=== PATIENT | female | born 1965 | race Caucasian/White ===

== ENCOUNTER 2020-09-29 01:19 | Emergency (ER) | payer OTHER ==
[~2020-09-29] VITALS: Ht 170.2 cm; Wt 60.0 kg
[2020-09-29 01:55] LABS: BASO % 1 % (0-3); EOS # 0.5 x10^3/uL (0.0-0.7); EOS % 6 % (0-3); HEMATOCRIT 39.7 % (36.0-47.0); HEMOGLOBIN 13.9 g/dL (12.0-15.5); LYMPH # 2.2 x10^3/uL (1.0-4.8); LYMPH % 28 % (24-48); MEAN CORPUSCULAR HEMOGLOBIN 32 pg (25-35); MEAN CORPUSCULAR HGB CONC 35 g/dL (31-37); MEAN CORPUSCULAR VOLUME 92 fL (79-100); MONO # 0.7 x10^3/uL (0.0-1.1); MONO % 10 % (0-9); NEUT # 4.3 x10^3/uL (1.8-7.7); NEUT % 55 % (31-73); PLATELET COUNT 188 x10^3/uL (140-400); RED BLOOD COUNT 4.32 x10^6/uL (3.50-5.40); RED CELL DISTRIBUTION WIDTH 12.9 % (11.5-14.5); WHITE BLOOD COUNT 7.7 x10^3/uL (4.0-11.0)
--- NOTE | 2020-09-29 02:01 | PHYS DOC ---
Past Medical History Past Medical History: Anxiety, COPD, Hypertension, Migraines Additional Past Medical Histor: chronic back pain Past Surgical History: Other Additional Past Surgical Histo: pt denies. Smoking Status: Current Every Day Smoker Alcohol Use: None General Adult EDM: Chief Complaint: SHORTNESS OF BREATH HPI: HPI: Patient is a 55 year old male who presented to ER for evaluation of trouble breathing for a few days, nonproductive cough. Patient is a smoker, she smoked a pack a day, patient has COPD, she is not on any oxygen at home. Patient denies any fever. Patient has history hypertension, she is on medication for. Patient also complained of headache she said is her migraine headache. She feels dizzy with a headache. Patient denies any chest pain. Patient denies being exposed to anybody who tested positive for COVID-19 Review of Systems: Review of Systems: Constitutional: Denies fever or chills. [] Eyes: Denies change in visual acuity. [] HENT: Denies nasal congestion or sore throat. [] Respiratory: Positive for cough and trouble breathing. Cardiovascular: Denies chest pain or edema. [] GI: Denies abdominal pain, nausea, vomiting, bloody stools or diarrhea. [] : Denies dysuria. [] Musculoskeletal: Denies back pain or joint pain. [] Integument: Denies rash. [] Neurologic: Positive for headache, positive for dizziness ,no focal weakness or numbness. Endocrine: Denies polyuria or polydipsia. [] Lymphatic: Denies swollen glands. [] Psychiatric: Denies depression or anxiety. [] Heart Score: Risk Factors: Risk Factors: DM, Current or recent (<one month) smoker, HTN, HLP, family history of CAD, obesity. Risk Scores: Score 0 - 3: 2.5% MACE over next 6 weeks - Discharge Home Score 4 - 6: 20.3% MACE over next 6 weeks - Admit for Clinical Observation Score 7 - 10: 72.7% MACE over next 6 weeks - Early Invasive Strategies Current Medications: Current Medications Medications (Trade) Dose Ordered Sig/Fay Start Time Stop Time Status Last Admin Dose Admin Albuterol/ Ipratropium (Duoneb) 3 ml 1X ONCE 09/29/20 02:00 09/29/20 02:01 UNV Methylprednisolone Sodium Succinate (SOLU-Medrol 125MG VIAL) 125 mg 1X ONCE 09/29/20 02:00 09/29/20 02:01 UNV Allergies: Allergies: Allergies Coded Allergies Type Severity Reaction Last Updated Verified No Known Drug Allergies 09/29/20 No Physical Exam: PE: Constitutional: Well developed, well nourished, no acute distress, non-toxic appearance. [] HENT: Normocephalic, atraumatic, bilateral external ears normal, oropharynx moist, no oral exudates, nose normal. [] Eyes: PERRLA, EOMI, conjunctiva normal, no discharge. [] Neck: Normal range of motion, no tenderness, supple, no stridor. [] Cardiovascular:Heart rate regular rhythm, no murmur [] Lungs & Thorax: Bilateral breath sounds wheezing to auscultation, no respiratory distress Abdomen: Bowel sounds normal, soft, no tenderness, no masses, no pulsatile masses. [] Skin: Warm, dry, no erythema, no rash. [] Back: No tenderness, no CVA tenderness. [] Extremities: No tenderness, no cyanosis, no clubbing, ROM intact, no edema. [] Neurologic: Alert and oriented X 3, normal motor function, normal sensory function, no focal deficits noted. [] Psychologic: Affect normal, judgement normal, mood normal. [] Current Patient Data: Labs: Laboratory Tests Test 09/29/20 01:42 White Blood Count 7.7 x10^3/uL (4.0-11.0) Red Blood Count 4.32 x10^6/uL (3.50-5.40) Hemoglobin 13.9 g/dL (12.0-15.5) Hematocrit 39.7 % (36.0-47.0) Mean Corpuscular Volume 92 fL (79-100) Mean Corpuscular Hemoglobin 32 pg (25-35) Mean Corpuscular Hemoglobin Concent 35 g/dL (31-37) Red Cell Distribution Width 12.9 % (11.5-14.5) Platelet Count 188 x10^3/uL (140-400) Neutrophils (%) (Auto) 55 % (31-73) Lymphocytes (%) (Auto) 28 % (24-48) Monocytes (%) (Auto) 10 % (0-9) H Eosinophils (%) (Auto) 6 % (0-3) H Basophils (%) (Auto) 1 % (0-3) Neutrophils # (Auto) 4.3 x10^3/uL (1.8-7.7) Lymphocytes # (Auto) 2.2 x10^3/uL (1.0-4.8) Monocytes # (Auto) 0.7 x10^3/uL (0.0-1.1) Eosinophils # (Auto) 0.5 x10^3/uL (0.0-0.7) Basophils # (Auto) 0.0 x10^3/uL (0.0-0.2) Laboratory Tests 09/29/20 01:42 Vital Signs: Vital Signs Date Time Temp Pulse Resp B/P (MAP) Pulse Ox O2 Delivery O2 Flow Rate FiO2 09/29/20 01:25 97.8 61 18 178/89 (118) 94 Room Air 97.8 EKG: EKG: EKG was done at 134, heart rate of 57 bpm, sinus rhythm, no ST segment ovation. Radiology/Procedures: Radiology/Procedures: [][facility] [address] [place] [address] IMAGING REPORT Signed PATIENT: ANGELLA JACOBS ACCOUNT: [id number] : 1965 LOCATION: ER AGE: 55 SEX: F EXAM STATUS: REG ER ORD. PHYSICIAN: SRINIVAS WILSON DO REASON: headache, dizziness, hypertensive PROCEDURE: CT HEAD WO CONTRAST CT head without contrast dated 09/29/2020. No comparison available. CLINICAL INDICATION: Headache and dizziness. Hypertension. TECHNIQUE: Contiguous axial imaging the head was performed from skull base to vertex. No contrast administered. One or more of the following individualized dose reduction techniques were utilized for this examination: 1. Automated exposure control 2. Adjustment of the mA and/or kV according to patient size 3. Use of iterative reconstruction technique FINDINGS: Ventricles and sulci are within normal limits for age. No midline shift or mass effect. Brain parenchyma is of normal attenuation. No hemorrhage or extra-axial collection. Posterior fossa and brainstem unremarkable. Visualized paranasal sinuses and mastoid air cells are clear. No apparent calvarial abnormality. IMPRESSION: No evidence of acute intracranial abnormality. Electronically signed by: Tacos Mattson MD (09/29/2020 2:19 AM) [facility] DICTATED and SIGNED BY: TACOS MATTSON MD DATE: 09/29/[id number] 0 [facility] [address] [place] [address] IMAGING REPORT Signed PATIENT: ANGELLA JACOBS ACCOUNT: [id number] : 1965 LOCATION: ER AGE: 55 SEX: F EXAM STATUS: REG ER ORD. PHYSICIAN: SRINIVAS WILSON DO REASON: soa PROCEDURE: PORTABLE CHEST 1V Single view chest dated 09/29/2020: Comparison made to 06/14/2008 Clinical Indication: Shortness of breath. Findings: Single upright portable exam of the chest was performed. Heart size and mediastinal contours are within normal limits given technique. The lungs are clear without evidence of focal consolidation. No pleural effusion or pneumothorax. Impression:: Negative portable chest. Electronically signed by: Tacos Mattson MD (09/29/2020 2:18 AM) [facility] DICTATED and SIGNED BY: TACOS MATTSON MD DATE: 09/29/[id number] 0 Course & Med Decision Making: Course & Med Decision Making Pertinent Labs and Imaging studies reviewed. (See chart for details) Patient is a 55-year-old female who presented to ER for evaluation of dizziness, headache, trouble breathing. Patient has COPD exacerbation, she is a smoker. Patient was given medication in ER, she feel much better. Patient will be discharged home Dragon Disclaimer: Al Disclaimer: This electronic medical record was generated, in whole or in part, using a voice recognition dictation system. Departure Departure Impression: Primary Impression: COPD with acute exacerbation Additional Impressions: Headache Hypomagnesemia Disposition: 01 DC HOME SELF CARE/HOMELESS Condition: IMPROVED Referrals: APRIL JAMA MD (PCP) follow up with your doctor this week. Patient Instructions: Chronic Obstructive Pulmonary Disease Exacerbation Additional Instructions: Thank you for visiting our Emergency Department. We appreciate you trusting us with your care. If any additional problems come up don't hesitate to return to visit us. Please follow up with your primary care provider so they can plan additional care if needed and know about the problem that you had. If symptoms worsen come back to the Emergency Department. Any concerning symptoms that start such as chest pain, shortness of air, weakness or numbness on one side of the body, running high fevers or any other concerning symptoms return to the ER. Scripts Albuterol Sulfate (PROAIR HFA INHALER) 8.5 Gm Hfa.aer.ad 2 PUFF IH PRN Q4-6HRS PRN for wheezing for 21 Days, #1 INHALER 0 Refills Prov: SRINIVAS WILSON DO 09/29/20 Prednisone (PREDNISONE) 20 Mg Tablet 1 TAB PO DAILY for 7 Days, #7 TAB Prov: SRINIVAS WILSON DO 09/29/20 SRINIVAS WILSON DO Sep 29, 2020 02:01
[2020-09-29] MEDS: methylPREDNISolone SOD SUCC PF 125 MG/2 ML VIAL. IV ONE (02:03)
[2020-09-29 02:04] LABS: CALCIUM 9.5 mg/dL (8.5-10.1); CREATININE 0.9 mg/dL (0.6-1.0); GFR 64.8; POTASSIUM 3.6 mmol/L (3.5-5.1)
[2020-09-29 02:10] LABS: ALBUMIN 3.6 g/dL (3.4-5.0); ALBUMIN/GLOBULIN RATIO 1.2 (1.0-1.7); MAGNESIUM 1.5 mg/dL (1.8-2.4); TOTAL BILIRUBIN 0.6 mg/dL (0.2-1.0); TOTAL PROTEIN 6.7 g/dL (6.4-8.2)
[2020-09-29] MEDS: IPRATRPIUM/ALBUTEROL 0.5/2.5MG 3 ML NEBU. NEB ONE (02:15)
--- NOTE | 2020-09-29 02:21 | RAD ---
Single view chest dated 09/29/2020: Comparison made to 06/14/2008 Clinical Indication: Shortness of breath. Findings: Single upright portable exam of the chest was performed. Heart size and mediastinal contours are with in normal limits given technique. The lungs are clear without evidence of focal consolidation. No ple ural effusion or pneumothorax. Impression:: Negative portable chest. Electronically signed by: Tacos Mattson MD (09/29/2020 2:18 AM) TIGRE
--- NOTE | 2020-09-29 02:22 | RAD ---
CT head without contrast dated 09/29/2020. No comparison available. CLINICAL INDICATION: Headache and dizziness. Hypertension. TECHNIQUE: Contiguous axial imaging the head was performed from skull base to vertex. No contrast administered. One or more of the following individualized dose reduction techniques were utilized for this examinat ion: 1. Automated exposure control 2. Adjustment of the mA and/or kV according to patient size 3. Use of iterative reconstruction technique FINDINGS: Ventricles and sulci are within normal limits for age. No midline shift or mass effect. Brain parench yma is of normal attenuation. No hemorrhage or extra-axial collection. Posterior fossa and brainstem unremarkable. Visualized paranasal sinuses and mastoid air cells are clear. No apparent calvarial abnormality. IMPRESSION: No evidence of acute intracranial abnormality. Electronically signed by: Tacos Mattson MD (09/29/2020 2:19 AM) TIGRE
[2020-09-29] MEDS: MAGNESIUM SULFATE 2GM 50 ML IV ONE (03:17)
[2020-09-29] MEDS ORDERED: ALBU2.5V8 IH (03:49)
[2020-09-29] MEDS ORDERED: PRED20TA PO (03:49)
[2020-09-29 04:27] VITALS: BP 197/96
--- NOTE | 2020-09-29 07:46 | EKG ---
[facility] [address] [place] [address] Test Date: 2020-09-29 Test Time: 01:34:30 Pat Name: ANGELLA JACOBS Department: Room: Gender: F [employer]st: : 1965 Requested By: SRINIVAS WILSON Order Number: [id number] Reading MD: Measurements Intervals [place] Rate: 57 P: 70 [place]: 160 QRS: 51 QRSD: 90 T: -34 QT: 428 QTc: 420 Interpretive Statements SINUS RHYTHM LEFT ATRIAL ABNORMALITY T ABNORMALITY IN ANTEROLATERAL LEADS ABNORMAL ECG RI6.02 No previous ECG available for comparison
== END 2020-09-29 04:47 | disposition home or self-care (01) ==
LOC: ER 01:19
DX: J44.1 Chronic obstructive pulmonary disease with (acute) exacerbation (principal); Z20.828 Contact with and (suspected) exposure to other viral communicable diseases; G43.909 Migraine, unspecified, not intractable, without status migrainosus; E83.42 Hypomagnesemia; R05 Cough; R42 Dizziness and giddiness; F41.9 Anxiety disorder, unspecified; I10 Essential (primary) hypertension; G89.29 Other chronic pain; F17.200 Nicotine dependence, unspecified, uncomplicated; Z98.890 Other specified postprocedural states
CPT/HCPCS: 36415; 70450; 71045; 80053; 83735; 83880; 84484; 85025; 93005; 94640; 96365; 96375; 99285; C9803; J2930; J3475; U0003

== ENCOUNTER 2021-04-20 07:04 | Observation (INO) | payer OTHER ==
[~2021-04-20] VITALS: Ht 167.6 cm; Wt 68.1 kg
[~2021-04-20 07:04] MED LIST: ALBU2.5V8 IH; PRED20TA PO
[2021-04-20] MEDS ORDERED: ACETAMINOPHEN 500 MG TABLET PO ONE (07:45)
[2021-04-20] MEDS ORDERED: IV NORMAL SALINE 1000ML BAG 1,000 ML IV ONE (07:45)
[2021-04-20] MEDS ORDERED: methylPREDNISolone SOD SUCC PF 125 MG/2 ML VIAL. IV ONE (07:45)
[2021-04-20 07:51] LABS: BILIRUBIN,URINE NEGATIVE (NEG); CLARITY,URINE CLEAR; COLOR,URINE YELLOW; NITRITE,URINE NEGATIVE (NEG); PH,URINE 5.5 (<5.0-8.0); PROTEIN,URINE NEGATIVE (NEG-TRACE)
[2021-04-20 07:58] LABS: BARBITURATES NEG (NEG); BENZODIAZEPINES NEG (NEG); CANNABINOIDS POS (NEG); COCAINE NEG (NEG); METHADONE NEG (NEG); OPIATES NEG (NEG); PHENCYCLIDINE NEG (NEG)
[2021-04-20 08:01] LABS: AMPHETAMINE/METHAMPHETAMINE NEG (NEG)
--- NOTE | 2021-04-20 08:06 | RAD ---
EXAM: Chest, single view. HISTORY: Fever. Shortness of air. COMPARISON: 09/29/2020 FINDINGS: A frontal view of the chest is obtained. There is no infiltrate, pleural effusion or pneumo thorax. The heart is normal in size. IMPRESSION: No acute pulmonary finding. Electronically signed by: Va Proctor MD (04/20/2021 8:04 AM) [id number]
[2021-04-20 08:17] LABS: BACTERIA,URINE 0 /HPF (0-FEW); RBC,URINE 0 /HPF (0-2); WBC,URINE OCC /HPF (0-4)
[2021-04-20 08:23] LABS: BASO # 0.1 x10^3/uL (0.0-0.2); BASO % 1 % (0-3); EOS # 0.4 x10^3/uL (0.0-0.7); EOS % 5 % (0-3); HEMATOCRIT 34.5 % (36.0-47.0); HEMOGLOBIN 12.1 g/dL (12.0-15.5); LYMPH # 1.8 x10^3/uL (1.0-4.8); LYMPH % 20 % (24-48); MEAN CORPUSCULAR HEMOGLOBIN 33 pg (25-35); MEAN CORPUSCULAR HGB CONC 35 g/dL (31-37); MEAN CORPUSCULAR VOLUME 93 fL (79-100); MONO # 0.9 x10^3/uL (0.0-1.1); MONO % 10 % (0-9); NEUT # 5.7 x10^3/uL (1.8-7.7); NEUT % 64 % (31-73); PLATELET COUNT 231 x10^3/uL (140-400); RED BLOOD COUNT 3.71 x10^6/uL (3.50-5.40); RED CELL DISTRIBUTION WIDTH 12.5 % (11.5-14.5)
[2021-04-20 08:25] LABS: CALCIUM 8.9 mg/dL (8.5-10.1); CREATININE 0.8 mg/dL (0.6-1.0); GFR 73.9; POTASSIUM 3.9 mmol/L (3.5-5.1)
[2021-04-20 08:31] LABS: ALBUMIN 3.5 g/dL (3.4-5.0); ALBUMIN/GLOBULIN RATIO 1.2 (1.0-1.7); TOTAL BILIRUBIN 0.6 mg/dL (0.2-1.0); TOTAL PROTEIN 6.4 g/dL (6.4-8.2)
--- NOTE | 2021-04-20 08:39 | PHYS DOC ---
Past Medical History Past Medical History: Anxiety, COPD, Hypertension, Migraines Additional Past Medical Histor: chronic back pain, spinal stenosis Past Surgical History: Tonsillectomy Additional Past Surgical Histo: pt denies. Smoking Status: Current Every Day Smoker Additional Information: 1 ppd Alcohol Use: None General Adult EDM: Chief Complaint: SHORTNESS OF BREATH HPI: HPI: Patient is a 56 year old female who was brought here by EMS from home for evaluation of altered mental status that started 24 hours ago. When EMS got there patient was acting confused, her oxygen saturation was below 90%. Patient has history of COPD, she had no nausea at home. EMS says her pupils appear to be pinpoint so they gave her a total of 4 mg Narcan but did not do anything. Patient is not vaccinated for COVID-19. Patient has history of CVA in the past that affect her ability to speak clearly. Patient denies any chest pain, no abdominal pain, no nausea vomiting. Patient has nonproductive cough, her daughter said that is chronic for her because of smoking. Patient is complaining of fever and chills. Review of Systems: Review of Systems: Constitutional: Positive for fever or chills. [] Eyes: Denies change in visual acuity. [] HENT: Denies nasal congestion or sore throat. [] Respiratory: Positive for cough or shortness of breath. [] Cardiovascular: Denies chest pain or edema. [] GI: Denies abdominal pain, nausea, vomiting, bloody stools or diarrhea. [] : Denies dysuria. [] Musculoskeletal: Denies back pain or joint pain. [] Integument: Denies rash. [] Neurologic: Denies headache, focal weakness or sensory changes. Positive for confusion Endocrine: Denies polyuria or polydipsia. [] Lymphatic: Denies swollen glands. [] Psychiatric: Denies depression or anxiety. [] Heart Score: C/O Chest Pain: N/A Risk Factors: Risk Factors: DM, Current or recent (<one month) smoker, HTN, HLP, family history of CAD, obesity. Risk Scores: Score 0 - 3: 2.5% MACE over next 6 weeks - Discharge Home Score 4 - 6: 20.3% MACE over next 6 weeks - Admit for Clinical Observation Score 7 - 10: 72.7% MACE over next 6 weeks - Early Invasive Strategies Current Medications: Current Medications Medications (Trade) Dose Ordered Sig/Fay Start Time Stop Time Status Last Admin Dose Admin Acetaminophen (Tylenol) 1,000 mg 1X ONCE 04/20/21 07:45 04/20/21 07:46 DC 04/20/21 08:27 1,000 MG Albuterol/ Ipratropium (Duoneb) 3 ml 1X ONCE 04/20/21 08:45 04/20/21 08:46 Methylprednisolone Sodium Succinate (SOLU-Medrol 125MG VIAL) 125 mg 1X ONCE 04/20/21 07:45 04/20/21 07:46 DC 04/20/21 08:30 125 MG Sodium Chloride 1,000 ml @ 1,000 mls/hr 1X ONCE 04/20/21 07:45 04/20/21 08:44 04/20/21 08:25 1,000 MLS/HR Allergies: Allergies: Allergies Coded Allergies Type Severity Reaction Last Updated Verified No Known Drug Allergies 04/20/21 No Physical Exam: PE: Constitutional: Well developed, well nourished, no acute distress, non-toxic appearance. [] HENT: Normocephalic, atraumatic, bilateral external ears normal, oropharynx dr ied, no oral exudates, nose normal. [] Eyes: PERRLA, EOMI, conjunctiva normal, no discharge. [] Neck: Normal range of motion, no tenderness, supple, no stridor. [] Cardiovascular:sinus tachycardia, regular rhythm, no murmur [] Lungs & Thorax: Bilateral breath sounds with severe wheezing to auscultation, in mild acute respiratory Abdomen: Bowel sounds normal, soft, no tenderness, no masses, no pulsatile masses. [] Skin: Warm, dry, no erythema, no rash. [] Back: No tenderness, no CVA tenderness. [] Extremities: No tenderness, no cyanosis, no clubbing, ROM intact, no edema. [] Neurologic: Alert and oriented X 3, normal motor function, normal sensory function, no focal deficits noted. [] Psychologic: Affect normal, judgement normal, mood normal. [] Current Patient Data: Labs: Laboratory Tests Test 04/20/21 07:21 04/20/21 07:38 04/20/21 07:43 04/20/21 07:50 Glucose (Fingerstick) 103 mg/dL (70-99) H Urine Collection Type U cath Urine Color Yellow Urine Clarity Clear Urine pH 5.5 (<5.0-8.0) Urine Specific [place] 1.015 (1.000-1.030) Urine Protein Negative mg/dL (NEG-TRACE) Urine Glucose (UA) Negative mg/dL (NEG) Urine Ketones (Stick) Negative mg/dL (NEG) Urine Blood Negative (NEG) Urine Nitrite Negative (NEG) Urine Bilirubin Negative (NEG) Urine Urobilinogen Dipstick 1.0 mg/dL (0.2 mg/dL) Urine Leukocyte Esterase Negative (NEG) Urine RBC 0 /HPF (0-2) Urine WBC Occ /HPF (0-4) Urine Bacteria 0 /HPF (0-FEW) Urine Mucus Slight /LPF Urine Opiates Screen Neg (NEG) Urine Methadone Screen Neg (NEG) Urine Barbiturates Neg (NEG) Urine Phencyclidine Screen Neg (NEG) Urine Amphetamine/Methamphetamine Neg (NEG) Urine Benzodiazepines Screen Neg (NEG) Urine Cocaine Screen Neg (NEG) Urine Cannabinoids Screen Pos (NEG) Urine Ethyl Alcohol Neg (NEG) SARS-CoV-2 Antigen (Rapid) Negative (NEGATIVE) White Blood Count 9.0 x10^3/uL (4.0-11.0) Red Blood Count 3.71 x10^6/uL (3.50-5.40) Hemoglobin 12.1 g/dL (12.0-15.5) Hematocrit 34.5 % (36.0-47.0) L Mean Corpuscular Volume 93 fL (79-100) Mean Corpuscular Hemoglobin 33 pg (25-35) Mean Corpuscular Hemoglobin Concent 35 g/dL (31-37) Red Cell Distribution Width 12.5 % (11.5-14.5) Platelet Count 231 x10^3/uL (140-400) Neutrophils (%) (Auto) 64 % (31-73) Lymphocytes (%) (Auto) 20 % (24-48) L Monocytes (%) (Auto) 10 % (0-9) H Eosinophils (%) (Auto) 5 % (0-3) H Basophils (%) (Auto) 1 % (0-3) Neutrophils # (Auto) 5.7 x10^3/uL (1.8-7.7) Lymphocytes # (Auto) 1.8 x10^3/uL (1.0-4.8) Monocytes # (Auto) 0.9 x10^3/uL (0.0-1.1) Eosinophils # (Auto) 0.4 x10^3/uL (0.0-0.7) Basophils # (Auto) 0.1 x10^3/uL (0.0-0.2) Sodium Level 142 mmol/L (136-145) Potassium Level 3.9 mmol/L (3.5-5.1) Chloride Level 104 mmol/L (98-107) Carbon Dioxide Level 30 mmol/L (21-32) Anion Gap 8 (6-14) Blood Urea Nitrogen 16 mg/dL (7-20) Creatinine 0.8 mg/dL (0.6-1.0) Estimated GFR (Cockcroft-Gault) 73.9 BUN/Creatinine Ratio 20 (6-20) Glucose Level 99 mg/dL (70-99) Lactic Acid Level 0.9 mmol/L (0.4-2.0) Calcium Level 8.9 mg/dL (8.5-10.1) Magnesium Level 1.8 mg/dL (1.8-2.4) Total Bilirubin 0.6 mg/dL (0.2-1.0) Aspartate Amino Transferase (AST) 23 U/L (15-37) Alanine Aminotransferase (ALT) 24 U/L (14-59) Alkaline Phosphatase 104 U/L (46-116) Troponin I Quantitative < 0.017 ng/mL (0.000-0.055) IQ-Aqi-L-Type Natriuretic Peptide 402 pg/mL (0-124) H Total Protein 6.4 g/dL (6.4-8.2) Albumin 3.5 g/dL (3.4-5.0) Albumin/Globulin Ratio 1.2 (1.0-1.7) Laboratory Tests 04/20/21 07:50 Laboratory Tests 04/20/21 07:50 Vital Signs: Vital Signs Date Time Temp Pulse Resp B/P (MAP) Pulse Ox O2 Delivery O2 Flow Rate FiO2 04/20/21 08:22 84 24 132/65 (87) 90 Nasal Cannula 5.0 04/20/21 07:24 102.8 102.8 EKG: EKG: EKG done at 736 heart rate 85 bpm, sinus rhythm, no ST segment patient Radiology/Procedures: Radiology/Procedures: [][facility] [address] [place], [place] [id number] IMAGING REPORT Signed PATIENT: ANGELLA JACOBS ACCOUNT: [id number] : 1965 LOCATION: ER AGE: 56 SEX: F EXAM STATUS: REG ER ORD. PHYSICIAN: SRINIVAS WILSON DO REASON: fever, soa NOT READY 7:28 PROCEDURE: PORTABLE CHEST 1V EXAM: Chest, single view. HISTORY: Fever. Shortness of air. COMPARISON: 09/29/2020 FINDINGS: A frontal view of the chest is obtained. There is no infiltrate, pleural effusion or pneumothorax. The heart is normal in size. IMPRESSION: No acute pulmonary finding. Electronically signed by: Va Juarez MD (04/20/2021 8:04 AM) [id number] DICTATED and SIGNED BY: VA JUAREZ MD DATE: 04/20/21 [id number] Course & Med Decision Making: Course & Med Decision Making Pertinent Labs and Imaging studies reviewed. (See chart for details) Patient is a 56-year-old female who was brought here by EMS from home due to confusion. Patient has COPD, she is a smoker, her saturation below 90% on room air. Patient oxygen saturation improved to 97% with 4 L oxygen. Her ABG showed her PCO2 level was 53, may be contributed to her confusion. Patient was actually oriented to place and person here, she had no neurological deficit. Patient did have a temperature in the ED. patient will be admitted to hospital for further evaluation and treatment. Dragon Disclaimer: Dragon Disclaimer: This electronic medical record was generated, in whole or in part, using a voice recognition dictation system. Departure Departure Impression: Primary Impression: COPD exacerbation Additional Impressions: Person under investigation for COVID-19 Hypercapnemia Disposition: ADMITTED INPATIENT Admitting Physician: MARY CARMEN (Dr. Schultz) Condition: STABLE Referrals: APRIL JAMA MD (PCP) SRINIVAS WILSON DO Apr 20, 2021 08:38
[2021-04-20] MEDS ORDERED: IPRATRPIUM/ALBUTEROL 0.5/2.5MG 3 ML NEBU. NEB ONE (08:45)
[2021-04-20 09:03] LABS: BASE EXCESS ABG 2 mmol/L (-3-3); HCO3 ABG 29 mmol/L (21-28); PCO2 ABG 53 mmHg (35-46); PO2 ABG 75 mmHg (75-108); SAT O2 ABG 94 % (92-99)
[2021-04-20 09:13] LABS: FIO2 ABG 5L NC
[2021-04-20] MEDS ORDERED: IBUPROFEN 200 MG TABLET. PO ONE (09:15)
[2021-04-20] MEDS ORDERED: cefTRIAXone IV Push 1 GM VIAL. IVP ONE (09:15)
--- NOTE | 2021-04-20 09:26 | EKG ---
[facility] [address] [place] [address] Test Date: 2021-04-20 Test Time: 07:32:59 Pat Name: ANGELLA JACOBS Department: Room: Gender: F [employer] Teacher: : 1965 Requested By: SRINIVAS WILSON Order Number: [id number] Reading MD: Measurements Intervals [place] Rate: 85 P: 71 [place]: 174 QRS: 64 QRSD: 92 T: 60 QT: 348 QTc: 414 Interpretive Statements SINUS RHYTHM LEFT ATRIAL ABNORMALITY ABNORMAL ECG RI6.02 No previous ECG available for comparison
[2021-04-20] MEDS ORDERED: ONDANSETRON PF 4 MG/2 ML VIAL. IV PRN (09:30)
[2021-04-20 09:33] LABS: INFLUENZA A PATIENT NEGATIVE (NEGATIVE); INFLUENZA B PATIENT NEGATIVE (NEGATIVE)
[2021-04-20] MEDS: IPRATRPIUM/ALBUTEROL 0.5/2.5MG 3 ML NEBU. NEB SCH ×4 (11:32→20:00)
[2021-04-20] MEDS ORDERED: MORPHINE SULFATE 2 MG/ML INJ. IVP PRN (12:15)
[2021-04-20] MEDS ORDERED: DEXTROSE 50% 25 GM / 50ML DISP.SYRIN. IV PRN (12:15)
[2021-04-20] MEDS ORDERED: MORPHINE SULFATE 2 MG/ML INJ. IV PRN (12:15)
[2021-04-20] MEDS ORDERED: oxyCODONE/APAP 5/325 1 TAB TABLET PO PRN (12:15)
[2021-04-20] MEDS ORDERED: DOCUSATE SODIUM 100 MG CAPSULE. PO PRN (12:15)
[2021-04-20] MEDS ORDERED: ACETAMINOPHEN 325 MG TABLET. PO PRN (12:15)
[2021-04-20] MEDS ORDERED: SENNOSIDES 8.6 MG TABLET PO PRN (12:15)
[2021-04-20] MEDS ORDERED: ONDANSETRON PF 4 MG/2 ML VIAL. IVP PRN (12:15)
[2021-04-20] MEDS ORDERED: cefTRIAXone IV Push 1 GM VIAL. IVP SCH (13:00)
[2021-04-20] MEDS ORDERED: ENOXAPARIN 40 MG/0.4 ML SYRINGE. SQ SCH (13:00)
[2021-04-20] MEDS ORDERED: ALBUTEROL SULFATE 2.5 MG/3 ML NEBU. NEB PRN (13:00)
[2021-04-20] MEDS ORDERED: AZITHRMYCN 500MG IVPB FOR OMNI 250 ML IV ONE (13:15)
[2021-04-20] MEDS: ASCORBIC ACID 500 MG TABLET PO SCH (14:50)
[2021-04-20] MEDS: methylPREDNISolone SOD SUCC PF 40 MG/ML VIAL. IV SCH ×2 (14:57→17:53)
[2021-04-20 16:34] VITALS: BP 106/64
--- NOTE | 2021-04-20 17:36 | PDOC ---
PULMONARY PROGRESS NOTES DATE: 04/20/21 TIME: 17:36 Vitals Vital Signs Date Time Temp Pulse Resp B/P (MAP) Pulse Ox O2 Delivery O2 Flow Rate FiO2 04/20/21 16:56 Nasal Cannula 5.0 04/20/21 16:34 97.9 72 18 106/64 (78) 98 97.9 Labs Laboratory Tests Test 04/20/21 07:21 04/20/21 07:38 04/20/21 07:43 04/20/21 07:44 Glucose (Fingerstick) 103 mg/dL (70-99) Urine Collection Type U cath Urine Color Yellow Urine Clarity Clear Urine pH 5.5 (<5.0-8.0) Urine Specific [place] 1.015 (1.000-1.030) Urine Protein Negative mg/dL (NEG-TRACE) Urine Glucose (UA) Negative mg/dL (NEG) Urine Ketones (Stick) Negative mg/dL (NEG) Urine Blood Negative (NEG) Urine Nitrite Negative (NEG) Urine Bilirubin Negative (NEG) Urine Urobilinogen Dipstick 1.0 mg/dL (0.2 mg/dL) Urine Leukocyte Esterase Negative (NEG) Urine RBC 0 /HPF (0-2) Urine WBC Occ /HPF (0-4) Urine Bacteria 0 /HPF (0-FEW) Urine Mucus Slight /LPF Urine Opiates Screen Neg (NEG) Urine Methadone Screen Neg (NEG) Urine Barbiturates Neg (NEG) Urine Phencyclidine Screen Neg (NEG) Urine Amphetamine/Methamphetamine Neg (NEG) Urine Benzodiazepines Screen Neg (NEG) Urine Cocaine Screen Neg (NEG) Urine Cannabinoids Screen Pos (NEG) Urine Ethyl Alcohol Neg (NEG) SARS-CoV-2 RNA (ANALI) Negative (Negative) SARS-CoV-2 Antigen (Rapid) Negative (NEGATIVE) Influenza Type A Antigen Negative (NEGATIVE) Influenza Type B Antigen Negative (NEGATIVE) Test 04/20/21 07:50 04/20/21 09:00 White Blood Count 9.0 x10^3/uL (4.0-11.0) Red Blood Count 3.71 x10^6/uL (3.50-5.40) Hemoglobin 12.1 g/dL (12.0-15.5) Hematocrit 34.5 % (36.0-47.0) Mean Corpuscular Volume 93 fL (79-100) Mean Corpuscular Hemoglobin 33 pg (25-35) Mean Corpuscular Hemoglobin Concent 35 g/dL (31-37) Red Cell Distribution Width 12.5 % (11.5-14.5) Platelet Count 231 x10^3/uL (140-400) Neutrophils (%) (Auto) 64 % (31-73) Lymphocytes (%) (Auto) 20 % (24-48) Monocytes (%) (Auto) 10 % (0-9) Eosinophils (%) (Auto) 5 % (0-3) Basophils (%) (Auto) 1 % (0-3) Neutrophils # (Auto) 5.7 x10^3/uL (1.8-7.7) Lymphocytes # (Auto) 1.8 x10^3/uL (1.0-4.8) Monocytes # (Auto) 0.9 x10^3/uL (0.0-1.1) Eosinophils # (Auto) 0.4 x10^3/uL (0.0-0.7) Basophils # (Auto) 0.1 x10^3/uL (0.0-0.2) Sodium Level 142 mmol/L (136-145) Potassium Level 3.9 mmol/L (3.5-5.1) Chloride Level 104 mmol/L (98-107) Carbon Dioxide Level 30 mmol/L (21-32) Anion Gap 8 (6-14) Blood Urea Nitrogen 16 mg/dL (7-20) Creatinine 0.8 mg/dL (0.6-1.0) Estimated GFR (Cockcroft-Gault) 73.9 BUN/Creatinine Ratio 20 (6-20) Glucose Level 99 mg/dL (70-99) Lactic Acid Level 0.9 mmol/L (0.4-2.0) Calcium Level 8.9 mg/dL (8.5-10.1) Magnesium Level 1.8 mg/dL (1.8-2.4) Total Bilirubin 0.6 mg/dL (0.2-1.0) Aspartate Amino Transf (AST/SGOT) 23 U/L (15-37) Alanine Aminotransferase (ALT/SGPT) 24 U/L (14-59) Alkaline Phosphatase 104 U/L (46-116) Troponin I Quantitative < 0.017 ng/mL (0.000-0.055) DP-Efe-C-Type Natriuretic Peptide 402 pg/mL (0-124) Total Protein 6.4 g/dL (6.4-8.2) Albumin 3.5 g/dL (3.4-5.0) Albumin/Globulin Ratio 1.2 (1.0-1.7) O2 Saturation 94 % (92-99) Arterial Blood pH 7.35 (7.35-7.45) Arterial Blood pCO2 at Patient Temp 53 mmHg (35-46) Arterial Blood pO2 at Patient Temp 75 mmHg (75-108) Arterial Blood HCO3 29 mmol/L (21-28) Arterial Blood Base Excess 2 mmol/L (-3-3) FiO2 5l nc Laboratory Tests Test 04/20/21 07:21 04/20/21 07:38 04/20/21 07:43 04/20/21 07:44 Glucose (Fingerstick) 103 mg/dL (70-99) Urine Collection Type U cath Urine Color Yellow Urine Clarity Clear Urine pH 5.5 (<5.0-8.0) Urine Specific [place] 1.015 (1.000-1.030) Urine Protein Negative mg/dL (NEG-TRACE) Urine Glucose (UA) Negative mg/dL (NEG) Urine Ketones (Stick) Negative mg/dL (NEG) Urine Blood Negative (NEG) Urine Nitrite Negative (NEG) Urine Bilirubin Negative (NEG) Urine Urobilinogen Dipstick 1.0 mg/dL (0.2 mg/dL) Urine Leukocyte Esterase Negative (NEG) Urine RBC 0 /HPF (0-2) Urine WBC Occ /HPF (0-4) Urine Bacteria 0 /HPF (0-FEW) Urine Mucus Slight /LPF Urine Opiates Screen Neg (NEG) Urine Methadone Screen Neg (NEG) Urine Barbiturates Neg (NEG) Urine Phencyclidine Screen Neg (NEG) Urine Amphetamine/Methamphetamine Neg (NEG) Urine Benzodiazepines Screen Neg (NEG) Urine Cocaine Screen Neg (NEG) Urine Cannabinoids Screen Pos (NEG) Urine Ethyl Alcohol Neg (NEG) SARS-CoV-2 RNA (ANALI) Negative (Negative) SARS-CoV-2 Antigen (Rapid) Negative (NEGATIVE) Influenza Type A Antigen Negative (NEGATIVE) Influenza Type B Antigen Negative (NEGATIVE) Test 04/20/21 07:50 04/20/21 09:00 White Blood Count 9.0 x10^3/uL (4.0-11.0) Red Blood Count 3.71 x10^6/uL (3.50-5.40) Hemoglobin 12.1 g/dL (12.0-15.5) Hematocrit 34.5 % (36.0-47.0) Mean Corpuscular Volume 93 fL (79-100) Mean Corpuscular Hemoglobin 33 pg (25-35) Mean Corpuscular Hemoglobin Concent 35 g/dL (31-37) Red Cell Distribution Width 12.5 % (11.5-14.5) Platelet Count 231 x10^3/uL (140-400) Neutrophils (%) (Auto) 64 % (31-73) Lymphocytes (%) (Auto) 20 % (24-48) Monocytes (%) (Auto) 10 % (0-9) Eosinophils (%) (Auto) 5 % (0-3) Basophils (%) (Auto) 1 % (0-3) Neutrophils # (Auto) 5.7 x10^3/uL (1.8-7.7) Lymphocytes # (Auto) 1.8 x10^3/uL (1.0-4.8) Monocytes # (Auto) 0.9 x10^3/uL (0.0-1.1) Eosinophils # (Auto) 0.4 x10^3/uL (0.0-0.7) Basophils # (Auto) 0.1 x10^3/uL (0.0-0.2) Sodium Level 142 mmol/L (136-145) Potassium Level 3.9 mmol/L (3.5-5.1) Chloride Level 104 mmol/L (98-107) Carbon Dioxide Level 30 mmol/L (21-32) Anion Gap 8 (6-14) Blood Urea Nitrogen 16 mg/dL (7-20) Creatinine 0.8 mg/dL (0.6-1.0) Estimated GFR (Cockcroft-Gault) 73.9 BUN/Creatinine Ratio 20 (6-20) Glucose Level 99 mg/dL (70-99) Lactic Acid Level 0.9 mmol/L (0.4-2.0) Calcium Level 8.9 mg/dL (8.5-10.1) Magnesium Level 1.8 mg/dL (1.8-2.4) Total Bilirubin 0.6 mg/dL (0.2-1.0) Aspartate Amino Transf (AST/SGOT) 23 U/L (15-37) Alanine Aminotransferase (ALT/SGPT) 24 U/L (14-59) Alkaline Phosphatase 104 U/L (46-116) Troponin I Quantitative < 0.017 ng/mL (0.000-0.055) MI-Kuz-P-Type Natriuretic Peptide 402 pg/mL (0-124) Total Protein 6.4 g/dL (6.4-8.2) Albumin 3.5 g/dL (3.4-5.0) Albumin/Globulin Ratio 1.2 (1.0-1.7) O2 Saturation 94 % (92-99) Arterial Blood pH 7.35 (7.35-7.45) Arterial Blood pCO2 at Patient Temp 53 mmHg (35-46) Arterial Blood pO2 at Patient Temp 75 mmHg (75-108) Arterial Blood HCO3 29 mmol/L (21-28) Arterial Blood Base Excess 2 mmol/L (-3-3) FiO2 5l nc Medications Active Scripts Medications Dose Route/Sig Max Daily Dose Days Date Category Proair Hfa Inhaler (Albuterol Sulfate) 8.5 Gm Hfa.aer.ad 2 Puff IH PRN Q4-6HRS PRN 21 09/29/20 Rx Prednisone 20 Mg Tablet 1 Tab PO DAILY 7 09/29/20 Rx Impression . Full consult dictated Acute exacerbation of COPD Fever Encephalopathy multifactorial Rule out COVID-19 NURIA ALCANTAR MD Apr 20, 2021 17:36
--- NOTE | 2021-04-20 17:41 | NUR ---
patient ex , Bang, called asking about patient status. pt had not given any contact information so RN went to room to wake patient up and ask. patient gave permission to share information and code with Bang. RN updated Bang on patient status and provided him with patient code.
[2021-04-20] MEDS ORDERED: IBUP-1060 PO (17:58)
[2021-04-20] MEDS ORDERED: HYDR25CA75 PO (17:58)
[2021-04-20] MEDS ORDERED: GABA600T7 PO (18:33)
[2021-04-20] MEDS ORDERED: VERA240C2 PO (18:40)
[2021-04-20] MEDS ORDERED: AMLO-186 PO (18:40)
[2021-04-20] MEDS ORDERED: ASPI-630 PO (18:40)
[2021-04-20] MEDS ORDERED: NICO1PAT21 TD (18:40)
[2021-04-20] MEDS ORDERED: DULO60CA6 PO (18:40)
[2021-04-20] MEDS ORDERED: FLUO20CA20 PO (18:40)
[2021-04-20] MEDS ORDERED: LEVE10007 PO (18:42)
[2021-04-20] MEDS ORDERED: OXYC1TAB19 PO (18:42)
[2021-04-20] MEDS ORDERED: ATOR40TA59 PO (18:42)
[2021-04-20 19:51] VITALS: BP 114/51
[2021-04-20] MEDS: oxyCODONE/APAP 5/325 1 TAB TABLET PO PRN (20:05)
--- NOTE | 2021-04-20 21:33 | PDOC1 ---
History and Physical Date of Service: DOS: DATE: 04/20/21 TIME: 21:22 Chief Complaint: Chief Complain: AMS History of Present Illness: HPI: Hx obtained from ED physician 56 year old female who was brought here by EMS from home for evaluation of altered mental status that started 24 hours ago. When EMS got there patient was acting confused, her oxygen saturation was below 90%. Patient has history of COPD, she had no nausea at home. EMS says her pupils appear to be pinpoint so they gave her a total of 4 mg Narcan but did not do anything. Patient is not vaccinated for COVID-19. Patient has history of CVA in the past that affect her ability to speak clearly. Patient denies any chest pain, no abdominal pain, no nausea vomiting. Patient has nonproductive cough, her daughter said that is chronic for her because of smoking. Patient is complaining of fever and chills. Past Medical/Surgical History: PMH/PSH: Past Medical History: Anxiety, COPD, Hypertension, Migraines, chronic back pain, spinal stenosis Past Surgical History: Tonsillectomy Allergies: Allergies: Coded Allergies: No Known Drug Allergies (Unverified , 04/20/21) Family History: Family History: Reviewed with no relevant findings Social History: Social History: Smoking Status: Current Every Day Smoker Additional Information: 1 ppd Alcohol Use: None Current Medications: Current Medications Current Medications Acetaminophen (Tylenol) 1,000 mg 1X ONCE PO Last administered on 04/20/21at 08:27; Start 04/20/21 at 07:45; Stop 04/20/21 at 07:46; Status DC Sodium Chloride 1,000 ml @ 1,000 mls/hr 1X ONCE IV Last administered on 04/20/21at 08:25; Start 04/20/21 at 07:45; Stop 04/20/21 at 08:44; Status DC Methylprednisolone Sodium Succinate (SOLU-Medrol 125MG VIAL) 125 mg 1X ONCE IV Last administered on 04/20/21at 08:30; Start 04/20/21 at 07:45; Stop 04/20/21 at 07:46; Status DC Albuterol/ Ipratropium (Duoneb) 3 ml 1X ONCE NEB Last administered on 04/20/21at 08:52; Start 04/20/21 at 08:45; Stop 04/20/21 at 08:46; Status DC Ceftriaxone Sodium (Rocephin) 1 gm 1X ONCE IVP Last administered on 04/20/21at 10:09; Start 04/20/21 at 09:15; Stop 04/20/21 at 09:16; Status DC Ibuprofen (Motrin) 600 mg 1X ONCE PO Last administered on 04/20/21at 10:07; Start 04/20/21 at 09:15; Stop 04/20/21 at 09:16; Status DC Ondansetron HCl (Zofran) 4 mg PRN Q8HRS PRN IV NAUSEA/VOMITING; Start 04/20/21 at 09:30; Stop 04/21/21 at 09:29 Albuterol/ Ipratropium (Duoneb) 3 ml RTQID NEB Last administered on 04/20/21at 15:05; Start 04/20/21 at 12:00; Stop 04/21/21 at 11:59 Sennosides (Senna) 17.2 mg PRN BID PRN PO CONSTIPATION; Start 04/20/21 at 12:15 Docusate Sodium (Colace) 100 mg PRN DAILY PRN PO HARD STOOLS; Start 04/20/21 at 12:15 Ondansetron HCl (Zofran) 4 mg PRN Q6HRS PRN IVP NAUSEA/VOMITING; Start 04/20/21 at 12:15 Methylprednisolone Sodium Succinate (SOLU-Medrol 40MG VIAL) 40 mg Q6HRS IV Last administered on 04/20/21at 17:53; Start 04/20/21 at 13:00 Albuterol Sulfate (Ventolin Neb Soln) 2.5 mg PRN QID PRN NEB SHORTNESS OF BREATH; Start 04/20/21 at 13:00 Dextrose (Dextrose 50%-Water Syringe) 12.5 gm PRN Q15MIN PRN IV SEE COMMENTS; Start 04/20/21 at 12:15 Acetaminophen (Tylenol) 650 mg PRN Q4HRS PRN PO TEMP OVER 100.4F OR MILD PAIN; Start 04/20/21 at 12:15 Enoxaparin Sodium (Lovenox 40mg Syringe) 40 mg Q24H SQ Last administered on 04/20/21at 14:54; Start 04/20/21 at 13:00 Pantoprazole Sodium (Protonix) 40 mg DAILYAC PO ; Start 04/21/21 at 16:30 Ascorbic Acid (Vitamin C) 500 mg DAILY PO Last administered on 04/20/21at 14:50; Start 04/20/21 at 13:00 Azithromycin 500 mg/Sodium Chloride 250 ml @ 250 mls/hr Q24H IV ; Start 04/21/21 at 14:00 Ceftriaxone Sodium (Rocephin) 1 gm Q24H IVP ; Start 04/20/21 at 13:00 Oxycodone/ Acetaminophen (Percocet 5/325) 1 tab PRN Q4HRS PRN PO MILD PAIN, 1ST CHOICE Last administered on 04/20/21at 20:05; Start 04/20/21 at 12:15 Oxycodone/ Acetaminophen (Percocet 5/325) 2 tab PRN Q4HRS PRN PO MODERATE PAIN, SEVERE PAIN; Start 04/20/21 at 12:15 Morphine Sulfate (Morphine Sulfate) 1 mg PRN Q1HR PRN IV PAIN-SEE COMMENTS; Start 04/20/21 at 12:15 Morphine Sulfate (Morphine Sulfate) 2 mg PRN Q2HR PRN IVP SEVERE PAIN 7-10; Start 04/20/21 at 12:15; Stop 04/21/21 at 12:14 Azithromycin 250 ml @ 250 mls/hr 1X ONCE IV Last administered on 04/20/21at 14:59; Start 04/20/21 at 13:15; Stop 04/20/21 at 14:14; Status DC Active Scripts Active Proair Hfa Inhaler (Albuterol Sulfate) 8.5 Gm Hfa.aer.ad 2 Puff IH PRN Q4-6HRS PRN 21 Days Prednisone 20 Mg Tablet 1 Tab PO DAILY 7 Days Reported Percocet 7.5-325 Mg Tablet (Oxycodone/Acetaminophen) 1 Each Tablet 1 Tab PO PRN Q6HRS PRN Levetiracetam 1,000 Mg Tablet 1,000 Mg PO BID Atorvastatin Calcium 40 Mg Tablet 80 Mg PO HS NICODERM CQ 21mg (Nicotine) 1 Each Patch.td24 1 Patch TD DAILY Cymbalta (Duloxetine Hcl) 60 Mg Capsule.dr 60 Mg PO DAILY Verapamil Er (Verapamil Hcl) 240 Mg Cap24h.pel 120 Mg PO DAILY Fluoxetine Hcl 20 Mg Capsule 20 Mg PO DAILY Amlodipine Besylate 5 Mg Tablet 5 Mg PO DAILY Aspirin 81 Mg Tab.chew 1 Tab PO DAILY Gabapentin 600 Mg Tablet 600 Mg PO TID Hydroxyzine Pamoate 25 Mg Capsule 25 Mg PO TID Ibuprofen 800 Mg Tablet 800 Mg PO PRN Q6HRS PRN ROS: Review of Systems Review of System REVIEW OF SYSTEMS: GENERAL: Denies weakness SKIN: No bruising, hair changes or rashes. EYES: No blurred, double or loss of vision. NOSE AND THROAT: No history of nosebleeds, hoarseness or sore throat. HEART: No history of palpitations, chest pain or shortness of breath on exertion. LUNGS: Denies cough, hemoptysis, wheezing or shortness of breath. GASTROINTESTINAL: Denies changes in appetite, nausea, vomiting, diarrhea or constipation. GENITOURINARY: No history of frequency, urgency, hesitancy or nocturia. NEUROLOGIC: Denies history of numbness, tingling, or tremor. PSYCHIATRIC: No history of panic, anxiety or depression. ENDOCRINE: No history of heat or cold intolerance, polyuria or polydipsia. EXTREMITIES: Denies joint pain, pain on walking or stiffness. Physical Exam: Vital Signs: Vital Signs Date Time Temp Pulse Resp B/P (MAP) Pulse Ox O2 Delivery O2 Flow Rate FiO2 04/20/21 19:51 98.0 68 16 114/51 (72) 96 Room Air 98.0 04/20/21 16:56 5.0 Physcial Exam: GEN: No apparent distress. Alert and oriented HEENT: Normal cephalic, atraumatic, external auditory canals are patent EYES: Extraocular muscles are intact, pupil are equally round and reactive to light and accommodation MUSCULOSKELETAL: Well developed , well nourished, good range of motion ENDOCRINE: No thyromegaly was palpated LYMPHATICS: No cervical chain or axillary nodes were noted HEMATOPOIETIC: No bruising NECK: Supple, no JVD, no thyromegaly was noted LUNGS: Clear to auscultation in all lung [place] without rhonchi or wheezing HEART: RRR, S!, S2 present. Peripheral pulses intact, no obvious murmurs noted ABDOMEN: Soft, nontender. Positive bowel sounds, no organomegaly, normal bowel sounds EXTREMITIES: Without clubbing, cyanosis, or edema. Pedal pulses intact. Nega tive Homans sign NEUROLOGIC: Normal speech and tone. A&O x 3, moves all extremities, no obvious focal deficits PSYCHIATRIC: Normal affect, normal mood. Stable SKIN: No ulcerations or rashes, good skin turgor, no jaundice VASCULAR: Good capillary refill, neurovascular bundle appears to be intact Labs: Labs: Laboratory Tests Test 04/20/21 07:21 04/20/21 07:38 04/20/21 07:43 04/20/21 07:44 Glucose (Fingerstick) 103 mg/dL (70-99) Urine Collection Type U cath Urine Color Yellow Urine Clarity Clear Urine pH 5.5 (<5.0-8.0) Urine Specific [place] 1.015 (1.000-1.030) Urine Protein Negative mg/dL (NEG-TRACE) Urine Glucose (UA) Negative mg/dL (NEG) Urine Ketones (Stick) Negative mg/dL (NEG) Urine Blood Negative (NEG) Urine Nitrite Negative (NEG) Urine Bilirubin Negative (NEG) Urine Urobilinogen Dipstick 1.0 mg/dL (0.2 mg/dL) Urine Leukocyte Esterase Negative (NEG) Urine RBC 0 /HPF (0-2) Urine WBC Occ /HPF (0-4) Urine Bacteria 0 /HPF (0-FEW) Urine Mucus Slight /LPF Urine Opiates Screen Neg (NEG) Urine Methadone Screen Neg (NEG) Urine Barbiturates Neg (NEG) Urine Phencyclidine Screen Neg (NEG) Urine Amphetamine/Methamphetamine Neg (NEG) Urine Benzodiazepines Screen Neg (NEG) Urine Cocaine Screen Neg (NEG) Urine Cannabinoids Screen Pos (NEG) Urine Ethyl Alcohol Neg (NEG) SARS-CoV-2 RNA (ANALI) Negative (Negative) SARS-CoV-2 Antigen (Rapid) Negative (NEGATIVE) Influenza Type A Antigen Negative (NEGATIVE) Influenza Type B Antigen Negative (NEGATIVE) Test 04/20/21 07:50 04/20/21 09:00 White Blood Count 9.0 x10^3/uL (4.0-11.0) Red Blood Count 3.71 x10^6/uL (3.50-5.40) Hemoglobin 12.1 g/dL (12.0-15.5) Hematocrit 34.5 % (36.0-47.0) Mean Corpuscular Volume 93 fL (79-100) Mean Corpuscular Hemoglobin 33 pg (25-35) Mean Corpuscular Hemoglobin Concent 35 g/dL (31-37) Red Cell Distribution Width 12.5 % (11.5-14.5) Platelet Count 231 x10^3/uL (140-400) Neutrophils (%) (Auto) 64 % (31-73) Lymphocytes (%) (Auto) 20 % (24-48) Monocytes (%) (Auto) 10 % (0-9) Eosinophils (%) (Auto) 5 % (0-3) Basophils (%) (Auto) 1 % (0-3) Neutrophils # (Auto) 5.7 x10^3/uL (1.8-7.7) Lymphocytes # (Auto) 1.8 x10^3/uL (1.0-4.8) Monocytes # (Auto) 0.9 x10^3/uL (0.0-1.1) Eosinophils # (Auto) 0.4 x10^3/uL (0.0-0.7) Basophils # (Auto) 0.1 x10^3/uL (0.0-0.2) Sodium Level 142 mmol/L (136-145) Potassium Level 3.9 mmol/L (3.5-5.1) Chloride Level 104 mmol/L (98-107) Carbon Dioxide Level 30 mmol/L (21-32) Anion Gap 8 (6-14) Blood Urea Nitrogen 16 mg/dL (7-20) Creatinine 0.8 mg/dL (0.6-1.0) Estimated GFR (Cockcroft-Gault) 73.9 BUN/Creatinine Ratio 20 (6-20) Glucose Level 99 mg/dL (70-99) Lactic Acid Level 0.9 mmol/L (0.4-2.0) Calcium Level 8.9 mg/dL (8.5-10.1) Magnesium Level 1.8 mg/dL (1.8-2.4) Total Bilirubin 0.6 mg/dL (0.2-1.0) Aspartate Amino Transf (AST/SGOT) 23 U/L (15-37) Alanine Aminotransferase (ALT/SGPT) 24 U/L (14-59) Alkaline Phosphatase 104 U/L (46-116) Troponin I Quantitative < 0.017 ng/mL (0.000-0.055) IN-Jhu-W-Type Natriuretic Peptide 402 pg/mL (0-124) Total Protein 6.4 g/dL (6.4-8.2) Albumin 3.5 g/dL (3.4-5.0) Albumin/Globulin Ratio 1.2 (1.0-1.7) O2 Saturation 94 % (92-99) Arterial Blood pH 7.35 (7.35-7.45) Arterial Blood pCO2 at Patient Temp 53 mmHg (35-46) Arterial Blood pO2 at Patient Temp 75 mmHg (75-108) Arterial Blood HCO3 29 mmol/L (21-28) Arterial Blood Base Excess 2 mmol/L (-3-3) FiO2 5l nc Laboratory Tests Test 04/20/21 07:21 04/20/21 07:38 04/20/21 07:43 04/20/21 07:44 Glucose (Fingerstick) 103 mg/dL (70-99) Urine Collection Type U cath Urine Color Yellow Urine Clarity Clear Urine pH 5.5 (<5.0-8.0) Urine Specific [place] 1.015 (1.000-1.030) Urine Protein Negative mg/dL (NEG-TRACE) Urine Glucose (UA) Negative mg/dL (NEG) Urine Ketones (Stick) Negative mg/dL (NEG) Urine Blood Negative (NEG) Urine Nitrite Negative (NEG) Urine Bilirubin Negative (NEG) Urine Urobilinogen Dipstick 1.0 mg/dL (0.2 mg/dL) Urine Leukocyte Esterase Negative (NEG) Urine RBC 0 /HPF (0-2) Urine WBC Occ /HPF (0-4) Urine Bacteria 0 /HPF (0-FEW) Urine Mucus Slight /LPF Urine Opiates Screen Neg (NEG) Urine Methadone Screen Neg (NEG) Urine Barbiturates Neg (NEG) Urine Phencyclidine Screen Neg (NEG) Urine Amphetamine/Methamphetamine Neg (NEG) Urine Benzodiazepines Screen Neg (NEG) Urine Cocaine Screen Neg (NEG) Urine Cannabinoids Screen Pos (NEG) Urine Ethyl Alcohol Neg (NEG) SARS-CoV-2 RNA (ANALI) Negative (Negative) SARS-CoV-2 Antigen (Rapid) Negative (NEGATIVE) Influenza Type A Antigen Negative (NEGATIVE) Influenza Type B Antigen Negative (NEGATIVE) Test 04/20/21 07:50 04/20/21 09:00 White Blood Count 9.0 x10^3/uL (4.0-11.0) Red Blood Count 3.71 x10^6/uL (3.50-5.40) Hemoglobin 12.1 g/dL (12.0-15.5) Hematocrit 34.5 % (36.0-47.0) Mean Corpuscular Volume 93 fL (79-100) Mean Corpuscular Hemoglobin 33 pg (25-35) Mean Corpuscular Hemoglobin Concent 35 g/dL (31-37) Red Cell Distribution Width 12.5 % (11.5-14.5) Platelet Count 231 x10^3/uL (140-400) Neutrophils (%) (Auto) 64 % (31-73) Lymphocytes (%) (Auto) 20 % (24-48) Monocytes (%) (Auto) 10 % (0-9) Eosinophils (%) (Auto) 5 % (0-3) Basophils (%) (Auto) 1 % (0-3) Neutrophils # (Auto) 5.7 x10^3/uL (1.8-7.7) Lymphocytes # (Auto) 1.8 x10^3/uL (1.0-4.8) Monocytes # (Auto) 0.9 x10^3/uL (0.0-1.1) Eosinophils # (Auto) 0.4 x10^3/uL (0.0-0.7) Basophils # (Auto) 0.1 x10^3/uL (0.0-0.2) Sodium Level 142 mmol/L (136-145) Potassium Level 3.9 mmol/L (3.5-5.1) Chloride Level 104 mmol/L (98-107) Carbon Dioxide Level 30 mmol/L (21-32) Anion Gap 8 (6-14) Blood Urea Nitrogen 16 mg/dL (7-20) Creatinine 0.8 mg/dL (0.6-1.0) Estimated GFR (Cockcroft-Gault) 73.9 BUN/Creatinine Ratio 20 (6-20) Glucose Level 99 mg/dL (70-99) Lactic Acid Level 0.9 mmol/L (0.4-2.0) Calcium Level 8.9 mg/dL (8.5-10.1) Magnesium Level 1.8 mg/dL (1.8-2.4) Total Bilirubin 0.6 mg/dL (0.2-1.0) Aspartate Amino Transf (AST/SGOT) 23 U/L (15-37) Alanine Aminotransferase (ALT/SGPT) 24 U/L (14-59) Alkaline Phosphatase 104 U/L (46-116) Troponin I Quantitative < 0.017 ng/mL (0.000-0.055) WR-Vyo-H-Type Natriuretic Peptide 402 pg/mL (0-124) Total Protein 6.4 g/dL (6.4-8.2) Albumin 3.5 g/dL (3.4-5.0) Albumin/Globulin Ratio 1.2 (1.0-1.7) O2 Saturation 94 % (92-99) Arterial Blood pH 7.35 (7.35-7.45) Arterial Blood pCO2 at Patient Temp 53 mmHg (35-46) Arterial Blood pO2 at Patient Temp 75 mmHg (75-108) Arterial Blood HCO3 29 mmol/L (21-28) Arterial Blood Base Excess 2 mmol/L (-3-3) FiO2 5l nc Images: Images PROCEDURE: PORTABLE CHEST 1V EXAM: Chest, single view. HISTORY: Fever. Shortness of air. COMPARISON: 09/29/2020 FINDINGS: A frontal view of the chest is obtained. There is no infiltrate, pleural effusion or pneumothorax. The heart is normal in size. IMPRESSION: No acute pulmonary finding. Assessment/Plan Assessment/Plan Acute metabolic encephalopathy Acute on chronic hypercapnic hypoxic respiratory failure Cannabinoid abuse Tobacco misuse Admit to medicine for further management Pulm consult BiPAP continuous and PRN O2 supplementation to maintain sats > 92% Lovenox DVT prophy Cardiac diet FULL code DPOA: undesignated Justifications for Admission Other Justification COPD exacerbation EMILY ZAYAS MD Apr 20, 2021 21:33
[2021-04-20 23:22] VITALS: BP 110/54
[2021-04-21] MEDS: methylPREDNISolone SOD SUCC PF 40 MG/ML VIAL. IV SCH ×2 (00:18→05:50)
[2021-04-21] MEDS: oxyCODONE/APAP 5/325 1 TAB TABLET PO PRN ×3 (01:35→09:37)
[2021-04-21 03:00] VITALS: BP 105/53
[2021-04-21 07:00] VITALS: BP 108/71
[2021-04-21] MEDS: IPRATRPIUM/ALBUTEROL 0.5/2.5MG 3 ML NEBU. NEB SCH ×2 (07:15→11:21)
[2021-04-21 08:32] LABS: BASO % 0 % (0-3); EOS % 0 % (0-3); HEMATOCRIT 33.8 % (36.0-47.0); HEMOGLOBIN 11.5 g/dL (12.0-15.5); LYMPH # 1.6 x10^3/uL (1.0-4.8); LYMPH % 10 % (24-48); MEAN CORPUSCULAR HEMOGLOBIN 32 pg (25-35); MEAN CORPUSCULAR HGB CONC 34 g/dL (31-37); MEAN CORPUSCULAR VOLUME 94 fL (79-100); MONO # 0.5 x10^3/uL (0.0-1.1); MONO % 3 % (0-9); NEUT # 14.9 x10^3/uL (1.8-7.7); NEUT % 88 % (31-73); PLATELET COUNT 236 x10^3/uL (140-400); RED BLOOD COUNT 3.59 x10^6/uL (3.50-5.40); RED CELL DISTRIBUTION WIDTH 12.5 % (11.5-14.5)
--- NOTE | 2021-04-21 08:38 | PDOC ---
PULMONARY PROGRESS NOTES DATE: 04/21/21 TIME: 08:38 Vitals Vital Signs Date Time Temp Pulse Resp B/P (MAP) Pulse Ox O2 Delivery O2 Flow Rate FiO2 04/21/21 07:15 90 Room Air 04/21/21 03:00 98.1 73 16 105/53 (70) 3.0 98.1 Labs Laboratory Tests Test 04/20/21 07:21 04/20/21 07:38 04/20/21 07:43 04/20/21 07:44 Glucose (Fingerstick) 103 mg/dL (70-99) Urine Collection Type U cath Urine Color Yellow Urine Clarity Clear Urine pH 5.5 (<5.0-8.0) Urine Specific [place] 1.015 (1.000-1.030) Urine Protein Negative mg/dL (NEG-TRACE) Urine Glucose (UA) Negative mg/dL (NEG) Urine Ketones (Stick) Negative mg/dL (NEG) Urine Blood Negative (NEG) Urine Nitrite Negative (NEG) Urine Bilirubin Negative (NEG) Urine Urobilinogen Dipstick 1.0 mg/dL (0.2 mg/dL) Urine Leukocyte Esterase Negative (NEG) Urine RBC 0 /HPF (0-2) Urine WBC Occ /HPF (0-4) Urine Bacteria 0 /HPF (0-FEW) Urine Mucus Slight /LPF Urine Opiates Screen Neg (NEG) Urine Methadone Screen Neg (NEG) Urine Barbiturates Neg (NEG) Urine Phencyclidine Screen Neg (NEG) Urine Amphetamine/Methamphetamine Neg (NEG) Urine Benzodiazepines Screen Neg (NEG) Urine Cocaine Screen Neg (NEG) Urine Cannabinoids Screen Pos (NEG) Urine Ethyl Alcohol Neg (NEG) SARS-CoV-2 RNA (ANALI) Negative (Negative) SARS-CoV-2 Antigen (Rapid) Negative (NEGATIVE) Influenza Type A Antigen Negative (NEGATIVE) Influenza Type B Antigen Negative (NEGATIVE) Test 04/20/21 07:50 04/20/21 09:00 White Blood Count 9.0 x10^3/uL (4.0-11.0) Red Blood Count 3.71 x10^6/uL (3.50-5.40) Hemoglobin 12.1 g/dL (12.0-15.5) Hematocrit 34.5 % (36.0-47.0) Mean Corpuscular Volume 93 fL (79-100) Mean Corpuscular Hemoglobin 33 pg (25-35) Mean Corpuscular Hemoglobin Concent 35 g/dL (31-37) Red Cell Distribution Width 12.5 % (11.5-14.5) Platelet Count 231 x10^3/uL (140-400) Neutrophils (%) (Auto) 64 % (31-73) Lymphocytes (%) (Auto) 20 % (24-48) Monocytes (%) (Auto) 10 % (0-9) Eosinophils (%) (Auto) 5 % (0-3) Basophils (%) (Auto) 1 % (0-3) Neutrophils # (Auto) 5.7 x10^3/uL (1.8-7.7) Lymphocytes # (Auto) 1.8 x10^3/uL (1.0-4.8) Monocytes # (Auto) 0.9 x10^3/uL (0.0-1.1) Eosinophils # (Auto) 0.4 x10^3/uL (0.0-0.7) Basophils # (Auto) 0.1 x10^3/uL (0.0-0.2) Sodium Level 142 mmol/L (136-145) Potassium Level 3.9 mmol/L (3.5-5.1) Chloride Level 104 mmol/L (98-107) Carbon Dioxide Level 30 mmol/L (21-32) Anion Gap 8 (6-14) Blood Urea Nitrogen 16 mg/dL (7-20) Creatinine 0.8 mg/dL (0.6-1.0) Estimated GFR (Cockcroft-Gault) 73.9 BUN/Creatinine Ratio 20 (6-20) Glucose Level 99 mg/dL (70-99) Lactic Acid Level 0.9 mmol/L (0.4-2.0) Calcium Level 8.9 mg/dL (8.5-10.1) Magnesium Level 1.8 mg/dL (1.8-2.4) Total Bilirubin 0.6 mg/dL (0.2-1.0) Aspartate Amino Transf (AST/SGOT) 23 U/L (15-37) Alanine Aminotransferase (ALT/SGPT) 24 U/L (14-59) Alkaline Phosphatase 104 U/L (46-116) Troponin I Quantitative < 0.017 ng/mL (0.000-0.055) HH-Nyx-N-Type Natriuretic Peptide 402 pg/mL (0-124) Total Protein 6.4 g/dL (6.4-8.2) Albumin 3.5 g/dL (3.4-5.0) Albumin/Globulin Ratio 1.2 (1.0-1.7) O2 Saturation 94 % (92-99) Arterial Blood pH 7.35 (7.35-7.45) Arterial Blood pCO2 at Patient Temp 53 mmHg (35-46) Arterial Blood pO2 at Patient Temp 75 mmHg (75-108) Arterial Blood HCO3 29 mmol/L (21-28) Arterial Blood Base Excess 2 mmol/L (-3-3) FiO2 5l nc Laboratory Tests Test 04/20/21 09:00 O2 Saturation 94 % (92-99) Arterial Blood pH 7.35 (7.35-7.45) Arterial Blood pCO2 at Patient Temp 53 mmHg (35-46) Arterial Blood pO2 at Patient Temp 75 mmHg (75-108) Arterial Blood HCO3 29 mmol/L (21-28) Arterial Blood Base Excess 2 mmol/L (-3-3) FiO2 5l nc Medications Active Scripts Medications Dose Route/Sig Max Daily Dose Days Date Category Proair Hfa Inhaler (Albuterol Sulfate) 8.5 Gm Hfa.aer.ad 2 Puff IH PRN Q4-6HRS PRN 21 09/29/20 Rx Prednisone 20 Mg Tablet 1 Tab PO DAILY 7 09/29/20 Rx Impression . Full consult dictated Acute exacerbation of COPD Fever Encephalopathy multifactorial Rule out COVID-19 NURIA ALCANTAR MD Apr 21, 2021 08:38
[2021-04-21 08:54] LABS: CALCIUM 8.9 mg/dL (8.5-10.1); CREATININE 0.9 mg/dL (0.6-1.0); GFR 64.5; MAGNESIUM 1.9 mg/dL (1.8-2.4); PHOSPHORUS 2.5 mg/dL (2.6-4.7); POTASSIUM 3.1 mmol/L (3.5-5.1)
[2021-04-21] MEDS: ASCORBIC ACID 500 MG TABLET PO SCH (09:35)
[2021-04-21] MEDS ORDERED: NICOTINE 14MG PATCH. TD PRN (10:15)
[2021-04-21] MEDS ORDERED: NICOTINE POLACRILEX 2MG GUM PACKAGE of 12. BC PRN (10:15)
[2021-04-21] MEDS ORDERED: Nicotine 14MG TD (10:20)
[2021-04-21] MEDS ORDERED: PRED20TA PO (10:20)
[2021-04-21] MEDS ORDERED: NICO2GUM42 BC (10:20)
--- NOTE | 2021-04-21 10:22 | DISCH ---
DISCHARGE INSTRUCTIONS Condition on Discharge Condition on Discharge: Stable Activity After Discharge Activity Instructions for Disc: Activity as tolerated Lifting Instructions after Dis: No pulling or pushing Exercise Instruction after Dis: Walk 15 min, 3 x per day Driving Instructions after Dis: Do not drive today Diet after Discharge Diet after Discharge: Cardiac Checks after Discharge Checks after discharge: Check blood press - daily Contacting the DRCamilla after DC Call your doctor for: If your condition worsens Follow-Up Follow up with: PCP within 2 weeks Follow Up With: Neurologist as needed EMILY ZAYAS MD Apr 21, 2021 10:21
[2021-04-21 10:49] LABS: % LYMPHS 12 % (24-48); % MONOS 1 % (0-10); % SEGS 87 % (35-66); PLT ESTIMATE ADEQUATE (ADEQUATE)
[2021-04-21 11:00] VITALS: BP 109/46
[2021-04-21] MEDS ORDERED: POTASSIUM CHLORIDE 20 MEQ TABLET.ER. PO SCH (11:00)
--- NOTE | 2021-04-21 12:51 | NUR ---
SW following. Discussed with RN, pt from home, requiring oxygen, regular diet, COVID-19 negative. Pt did a 6 minute walk requiring 2L with exertion. PENELOPE met with pt, pt agreeable, does not have preference of provider. PENELOPE faxed referral to [facility] - pt's daughter on her way to take pt home. Awaiting approval from [employer] to provide tank. RN notified. Choice of vendor form completed. PENELOPE will continue to follow. Addendum: 04/21/21 at 1454 by JUAN DAVID NEGRETE [employer] tank provided.
[2021-04-21] MEDS ORDERED: AZITHROMYCIN 500 MG in IV NORMAL SALINE 250ML 250 ML IV SCH (14:00)
[2021-04-21] MEDS ORDERED: levETIRAcetam 500 MG TABLET PO SCH (15:00)
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
--- NOTE | 2021-04-21 16:07 | NUR ---
Discharge Note: ANGELLA JACOBS [address] Discharge instructions and discharge home medications reviewed with Patient and a copy given. All questions have been answered and understanding verbalized. The following instructions and handouts were given: follow up instructions, oxygen tank. Discontinued lines and drains: 22 guage right AC, tip intact. patient tolerated well. Patient discharged to [facility] with self care via family.
--- NOTE | 2021-04-21 16:16 | CONS ---
DATE OF CONSULTATION: 04/20/2021 ATTENDING PHYSICIAN: Bang Schultz MD REASON FOR CONSULTATION: The patient is seen in followup in pulmonary consultation at the request of Dr. Schultz for possible COVID. HISTORY OF PRESENT ILLNESS: The patient is a 56-year-old that was brought to the emergency room by EMS for evaluation of altered mental status, started approximately 24 hours ago. The patient was acting confused. Her saturations were 90%. She has a history of COPD. No nausea or vomiting at home. She presented and had a fever of 102.8. I was asked to see her in consultation. She has not been vaccinated for COVID. She has a previous history of CVA with some deficits regarding her speech. I did visit with the patient while she was in the Emergency Department. I reviewed her x-ray, which revealed no acute infiltrates. Her COVID-19 is pending at this time. She had a toxicology screen, which was positive for cannabinoid. Electrolytes were noted and arterial blood gas revealed a pH of 7.35, PaCO2 of 53, pO2 of 75. White count was normal. She did have a lymphopenia. PAST MEDICAL HISTORY: COPD, hypertension, migraine headache, chronic back pain, spinal stenosis, anxiety disorder. PAST SURGICAL HISTORY: Tonsillectomy. SOCIAL HISTORY: She does smoke. REVIEW OF SYSTEMS: CONSTITUTIONAL: Positive for fever and possibly chills. EYES: No change in visual acuity. HENT: No nasal congestion or sore throat. PULMONARY: As indicated above. CARDIOVASCULAR: No chest pain, no pressure. GASTROINTESTINAL: No nausea, vomiting, diarrhea. GENITOURINARY: No dysuria or frequency. MUSCULOSKELETAL: No localized muscle aches or joint pains. SKIN: No new skin rashes. NEUROLOGIC: No headaches, diplopia or blurred vision. CURRENT MEDICATIONS: List was reviewed. PHYSICAL EXAMINATION: VITAL SIGNS: Stable. O2 saturation was greater than 92%, currently on 6 liters. HEENT: Eyes, the sclerae are nonicteric. NECK: Jugular venous distention was not elevated. No lymphadenopathy. CHEST: Full expansion. LUNGS: Adequate air flow with no wheezes. CARDIOVASCULAR: Regular rate and rhythm with S1, S2, no S3. ABDOMEN: Soft, nontender. EXTREMITIES: No clubbing, cyanosis or edema. LABORATORY DATA: As indicated above. IMPRESSION: 1. Acute hypoxemic/chronic hypercapnic respiratory failure. 2. Acute exacerbation of chronic obstructive pulmonary disease. 3. Fever. 4. Cannabinoid positive in urine. 5. Encephalopathy, multifactorial secondary to above. 6. Possible COVID-19. PLAN: 1. The patient is to be admitted. Continue oxygen supplementation. 2. Empiric antibiotics. 3. COVID-19 testing. 4. DVT prophylaxis. I do appreciate the privilege in sharing in the patient's care. TRISTA/YANI DR: Sara TID: [id number]
[2021-04-21] MEDS ORDERED: PANTOPRAZOLE 40 MG TABLET.DR. PO SCH (16:30)
[2021-04-21] MEDS ORDERED: LACTOBACILLUS RHAMNOSUS GG 1 CAPSULE. PO SCH (21:00)
[2021-04-22] MEDS ORDERED: predniSONE 20 MG TABLET PO SCH (09:00)
--- NOTE | 2021-04-23 21:04 | PDOC3 ---
[facility]-Discharge Summary Date of Admission: Date of Admission: Apr 20, 2021 Date of Discharge: Date of Discharge: Apr 21, 2021 Discharge Diagnosis: Discharge Diagnosis: Acute metabolic encephalopathy Acute on chronic hypercapnic hypoxic respiratory failure Cannabinoid abuse Tobacco misuse Consults: Consults: Neuro Recommendations: I will arrange for an outpatient polysomnogram Follow-up in my clinic after the study is done Okay for discharge I wrote for the levetiracetam which she is supposed to be taking. Fully discussed with patient and her daughter. Hospital Course: Hospital Course: 56 year old female who was brought here by EMS from home for evaluation of altered mental status that started 24 hours ago. When EMS got there patient was acting confused, her oxygen saturation was below 90%. Patient has history of COPD, she had no nausea at home. EMS says her pupils appear to be pinpoint so they gave her a total of 4 mg Narcan but did not do anything. Patient is not vaccinated for COVID-19. Patient has history of CVA in the past that affect her ability to speak clearly. Patient denies any chest pain, no abdominal pain, no nausea vomiting. Patient has nonproductive cough, her daughter said that is chronic for her because of smoking. Patient is complaining of fever and chills. By day of discharge, pt was clinically stable and ready for discharge. Rest of hospital course was uneventful Disposition: Disposition/Orders: D/C to Home Activity: Activity: Resume previous activity Diet: Diet: Cardiac Medications: Home Meds Active Scripts Prednisone (PREDNISONE) 20 Mg Tablet, 20 MG PO DAILY for copd exacerbation for 5 Days, #5 TAB Prov:EMILY ZAYAS MD 04/21/21 Nicotine Polacrilex (NICOTINE GUM) 2 Mg Gum, 1 EACH BC PRN Q1HR PRN for SMOKING CESSATION for 30 Days, #120 EACH 2 Refills Prov:EMILY ZAYAS MD 04/21/21 [Nicotine 14MG] 1 PATCH PATCH No Conflict Check, 1 PATCH TD PRN DAILY PRN for SM OKING CESSATION for 30 Days, #30 PATCH 2 Refills Prov:EMILY ZAYAS MD 04/21/21 Albuterol Sulfate (PROAIR HFA INHALER) 8.5 Gm Hfa.aer.ad, 2 PUFF IH PRN Q4-6HRS PRN for wheezing for 21 Days, #1 INHALER 0 Refills Prov:SRINIVAS WILSON DO 09/29/20 Reported Medications Oxycodone/Apap 7.5-325 (PERCOCET 7.5-325 MG TABLET ) 1 Each Tablet, 1 TAB PO PRN Q6HRS PRN for PAIN, TAB 0 Refills 04/20/21 Levetiracetam (LEVETIRACETAM) 1,000 Mg Tablet, 1000 MG PO BID for seizures, TAB 04/20/21 Atorvastatin Calcium (ATORVASTATIN CALCIUM) 40 Mg Tablet, 80 MG PO HS for FOR CHOLESTEROL, #30 TAB 0 Refills 04/20/21 Duloxetine Hcl (CYMBALTA) 60 Mg Capsule.dr, 60 MG PO DAILY for mood, CAP 04/20/21 Verapamil Hcl (VERAPAMIL ER) 240 Mg Cap24h.pel, 120 MG PO DAILY for HTN, CAP.SR 04/20/21 Fluoxetine Hcl (FLUOXETINE HCL) 20 Mg Capsule, 20 MG PO DAILY for anti depressant, CAP 04/20/21 Amlodipine Besylate (AMLODIPINE BESYLATE) 5 Mg Tablet, 5 MG PO DAILY for HTN, TAB 04/20/21 Aspirin (ASPIRIN) 81 Mg Tab.chew, 1 TAB PO DAILY for blood thinner, #30 TAB 3 Refills 04/20/21 Gabapentin (GABAPENTIN) 600 Mg Tablet, 600 MG PO TID for NEUROGENIC PAIN, TAB 04/20/21 Hydroxyzine Pamoate (HYDROXYZINE PAMOATE) 25 Mg Capsule, 25 MG PO TID for itching, CAP 04/20/21 Discontinued Reported Medications Nicotine (NICODERM CQ 21mg) 1 Each Patch.td24, 1 PATCH TD DAILY for nicotine craving, PATCH 04/20/21 Ibuprofen (IBUPROFEN) 800 Mg Tablet, 800 MG PO PRN Q6HRS PRN for INFLAMMATION, TAB 04/20/21 Discontinued Scripts Prednisone (PREDNISONE) 20 Mg Tablet, 1 TAB PO DAILY for 7 Days, #7 TAB Prov:SRINIVAS WILSON DO 09/29/20 Scheduled Amlodipine Besylate (Amlodipine Besylate), 5 MG PO DAILY, (Reported) Aspirin (Aspirin), 1 TAB PO DAILY, (Reported) Atorvastatin Calcium (Atorvastatin Calcium), 80 MG PO HS, (Reported) Duloxetine Hcl (Cymbalta), 60 MG PO DAILY, (Reported) Fluoxetine Hcl (Fluoxetine Hcl), 20 MG PO DAILY, (Reported) Gabapentin (Gabapentin), 600 MG PO TID, (Reported) Hydroxyzine Pamoate (Hydroxyzine Pamoate), 25 MG PO TID, (Reported) Levetiracetam (Levetiracetam), 1,000 MG PO BID, (Reported) Prednisone (Prednisone), 20 MG PO DAILY Verapamil Hcl (Verapamil Er), 120 MG PO DAILY, (Reported) Scheduled PRN Albuterol Sulfate (Proair Hfa Inhaler), 2 PUFF IH PRN Q4-6HRS PRN for wheezing Nicotine Polacrilex (Nicotine Gum), 1 EACH BC PRN Q1HR PRN for SMOKING CESSATION Oxycodone/Apap 7.5-325 (Percocet 7.5-325 Mg Tablet ), 1 TAB PO PRN Q6HRS PRN for PAIN, (Reported) [Nicotine 14MG], 1 PATCH TD PRN DAILY PRN for SMOKING CESSATION Discontinued Medications Ibuprofen (Ibuprofen), 800 MG PO PRN Q6HRS PRN for INFLAMMATION, (Reported) Nicotine (NICODERM CQ 21mg), 1 PATCH TD DAILY, (Reported) Prednisone (Prednisone), 1 TAB PO DAILY Total Time: Total Time: Total time spent was 35 minutes in preparing scripts, discharge planning with SW and RN, and preparing this discharge summary. Patient seen and examined on day of discharge. Justicifation of Admission Dx: Justifications for Admission: Justification of Admission Dx: Yes Respiratory Failure: Severe Resp Distress EMILY ZAYAS MD Apr 23, 2021 21:04
== END 2021-04-21 14:05 | disposition home or self-care (01) ==
LOC: ER 07:04 → ED HOLD 09:17 → INTOOBSV 09:17 → ED HOLD 14:26 → 6 SOUTH 16:21
PROVIDERS: ADMIT Internal Medicine; ATTEND Internal Medicine
DX: J44.1 Chronic obstructive pulmonary disease with (acute) exacerbation (principal); Z20.822 Contact with and (suspected) exposure to COVID-19; J96.21 Acute and chronic respiratory failure with hypoxia; F17.200 Nicotine dependence, unspecified, uncomplicated; G93.41 Metabolic encephalopathy; F41.9 Anxiety disorder, unspecified; J44.9 Chronic obstructive pulmonary disease, unspecified; I10 Essential (primary) hypertension; G43.909 Migraine, unspecified, not intractable, without status migrainosus; M54.9 Dorsalgia, unspecified; G89.29 Other chronic pain; Z86.73 Personal history of transient ischemic attack (TIA), and cerebral infarction without residual deficits; Z82.49 Family history of ischemic heart disease and other diseases of the circulatory system
CPT/HCPCS: 36415; 36600; 71045; 80048; 80053; 80307; 81001; 82805; 82962; 83605; 83735; 83880; 84100; 84484; 85007; 85025; 87040; 87426; 87804; 93005; 94618; 94640; 96361; 96365; 96372; 96375; 96376; 99285; G0378; J0456; J0696; J1650; J2920; J2930; J7030; U0003; U0005; G0379

== ENCOUNTER → 2021-10-26 | Outpatient (CLI) | payer OTHER ==
[~2021-10-26] MED LIST changes: +AMLO-186 PO; +ASPI-630 PO; +ATOR40TA59 PO; +DULO60CA7 PO; +FLUO20CA22 PO; +GABA600T7 PO; +HYDR25CA75 PO; +IBUP-1060 PO; +LEVE10007 PO; +NICO1PAT21 TD; +NICO2GUM42 BC; +Nicotine 14MG TD; +OXYC1TAB19 PO; +VERA240C2 PO
--- NOTE | 2021-10-26 15:31 | RAD ---
AP and Lateral Views of the Chest 10/26/2021 2:39 PM Indication: Reason: DX HEART PROBLEMS. Comparison: Chest radiograph April 20, 2021 Findings: There is no focal consolidation or infiltrate identified. The cardiomediastinal silhouette is within normal limits. There is no evidence of pneumothorax or pleural effusion. No acute osseous a bnormalities are identified. Impression: No evidence of acute cardiopulmonary process. Electronically signed by: Vasile Sheffield MD (10/26/2021 3:29 PM) [id number]
== END ==
LOC: RAD 14:20
PROVIDERS: ATTEND Family Medicine
DX: Z02.71 Encounter for disability determination (principal); I51.89 Other ill-defined heart diseases
CPT/HCPCS: 71046

== ENCOUNTER → 2021-11-01 | Outpatient (CLI) | payer OTHER ==
--- NOTE | 2021-11-01 16:10 | KCIC ---
MRI BRAIN WO History:Reason: EPILEPSY/MIGRAINE/FREQUENT FALLS/MULTIPLE STROKES / Spl. Instructions: / History: Fi rst stroke Nov. Memory problems, rodriges's, dizziness. F/U imaging. Technique: Multiplanar, multi sequential MR imaging was performed of the brain without contrast. Comparison: None Findings: No acute infarct. No intracranial hemorrhage. No mass effect. No hydrocephalus. Mild multifocal FLAIR hyperintensities within the subcortical, deep and periventricular white matter. Symmetric bilateral hippocampal formations. No abnormal signal abnormality. Imaged orbits are unremarkable. Mild scattered paranasal sinus mucosal thickening. Minimal left masto id fluid. Impression: 1. Mild multifocal white matter lesions. Differential considerations include demyelinating disease, sequelae of chronic microvascular ischemia and prior insult or vasculitis. Electronically signed by: Sulaiman Dominique DO (11/01/2021 4:08 PM) [facility]
== END ==
LOC: KCIC MRI 14:32
PROVIDERS: ATTEND Psychiatry & Neurology Neurology with Special Qualifications in Child Neurology
DX: R90.82 White matter disease, unspecified (principal); G40.909 Epilepsy, unspecified, not intractable, without status epilepticus; Z86.69 Personal history of other diseases of the nervous system and sense organs; R29.6 Repeated falls; Z86.73 Personal history of transient ischemic attack (TIA), and cerebral infarction without residual deficits
CPT/HCPCS: 70551